=== PATIENT | female | born 1985 | race Caucasian/White ===

== ENCOUNTER 2024-09-07 18:40 | Emergency (ER) | payer OTHER, SELFPAY ==
[2024-09-07 18:51] VITALS: BP 117/76
[2024-09-07 19:15] LABS: % Basophils 0.5 % (0-2); % Eosinophils 2.1 % (0-6); % Immature Granulocytes 0.2 % (0-0.5); % Lymphocytes 37.7 % (20.5-51.1); % Monocytes 7.9 % (1.7-9.3); % Neutrophils 51.6 % (42.2-75.2); Absolute Eosinophils 0.1 10^3/uL (0-0.7); Absolute Lymphocytes 2.4 10^3/uL (1.2-3.4); Absolute Monocytes 0.5 10^3/uL (0.1-0.6); Absolute Neutrophils 3.3 10^3/uL (1.4-6.5); Hematocrit 35.6 % (37.0-47.0); Hemoglobin 11.7 g/dL (12.0-16.0); Mean Corp Hgb Conc. 32.9 g/dL (33.0-37.0); Mean Corpuscular Hgb 26.6 pg (27.0-31.0); Mean Corpuscular Volume 80.9 fL (81.0-99.0); Mean Platelet Volume 8.9 fL (7.4-10.4); Nucleated Red Blood Cells % 0 %; Platelet Count 194 10^3/uL (130-400); Red Cell Dist. Width 13.9 % (11.5-14.5); White Blood Cell Count 6.3 10^3/uL (4.8-10.8)
[2024-09-07 19:30] LABS: ALT (SGPT) 14 U/L (0-35); AST (SGOT) 18 U/L (14-36); Albumin 4.7 g/dl (3.5-5.0); Alkaline Phosphatase 29 U/L (38-126); Blood Urea Nitrogen 13 mg/dl (7-17); Calcium 9.7 mg/dl (8.4-10.2); Carbon Dioxide 26 mmol/L (22-30); Chloride 103 mmol/L (98-107); Glucose 95 mg/dl (70-99); Potassium 4.7 mmol/L (3.5-5.1); Sodium 138 mmol/L (135-145); Total Bilirubin 0.4 mg/dl (0.2-1.3); Total Protein 7.3 g/dl (6.3-8.2); eGFR > 60.00
[2024-09-07 22:00] VITALS: BMI 25.3
[2024-09-07 22:15] LABS: Urine Albumin Negative (Neg - Trace); Urine Bilirubin Negative (Negative); Urine Character Clear (Clear); Urine Color Yellow; Urine Glucose Negative (Negative); Urine Ketone Negative (Negative); Urine Leukocyte Negative (Negative); Urine Nitrite Negative (Negative); Urine Occult Blood 1+ (Negative); Urine Urobilinogen Negative (Neg - 1+)
[2024-09-07 22:26] LABS: Urine Squamous Cell >30 /LPF (Few)
[2024-09-07 22:27] LABS: Urine White Cell None Seen /HPF (0-5)
--- NOTE | 2024-09-07 22:51 | ED.GENMED ---
History of Present Illness
<KARINE Benito - Last Filed: 09/08/24 06:24>
General
Chief Complaint: Urinary Symptoms
Source: patient
Exam Limitations: none
Time Seen by Provider: 09/07/24 22:39
History of Present Illness
History of Present Illness:
38 y/o female pt with a PMH of kidney stones and Anemia presenting to ED c/o an unresolved UTI on macrobid. Pt started having symptoms of dysuria urgency and frequency on 09/02/24, went to PCP was prescribed macrobid and told she would be contacted
with results of UA. Pt states she didn't hear from them, she is coming in today because she is still having the same symptoms and now has associated right sided lower back discomfort and right sided suprapubic discomfort. Pt denies fevers,
hematuria, discharge, incontinence, N/V/D. Has a hx of complicated kidney stones that needed to be surgically treated, states she does not remember how it felt having them because it was more than 10 years ago. LMP: 08/14/24.
Past History
<KARINE Benito - Last Filed: 09/08/24 06:24>
Past History
ED Past Medical History: Other (Kidney stones, Anemia)
ED Past Surgical History: Urological
Review of Systems
<KARINE Benito - Last Filed: 09/08/24 06:24>
Review of Systems
Allergies reviewed?: Yes
Constitutional: Reports no symptoms
Respiratory: Reports no symptoms
Cardiac: Reports no symptoms
ABD/GI: Reports other (Suprapubic tenderness & discomfort)
: Reports dysuria, frequency, flank pain and urgency
Skin: Reports no symptoms
Neurological: Reports no symptoms
Hematologic/Lymphatic: Reports no symptoms
Phy Exam
<KARINE Benito - Last Filed: 09/08/24 06:24>
General Physical Exam
General Presentation: well appearing and no apparent distress
General age: appears stated age
General Skin: warm and dry
General Habitus: normal
General Mental: alert
General Hydration: appears well hydrated
Cardiovascular Exam
Cardiovascular Exam: regular rate/rhythm, no gallop and no murmur
Pulmonary Exam
Pulmonary Exam: lungs clear and no respiratory distress
Gastrointestinal Exam
Gastrointestinal Exam: normal bowel sounds, soft, non distended and cva tenderness
Palpation: left upper quadrant: No tenderness, left lower quadrant: No tenderness, right upper quadrant: No tenderness and right lower quadrant: Minimal tenderness
Skin Exam
Skin Exam: normal color and warm/dry
Course
<KARINE Benito - Last Filed: 09/08/24 06:24>
Orders/Labs/Results
Orders:
Orders
09/07/24 19:07
Complete Blood Count/With Diff Urgent
Comprehensive Metabolic Panel Urgent
HCG, Serum Qualitative Screen Urgent
Comment: ADD ON
09/07/24 22:05
Urinalysis Reflex To Culture Urgent
Date Specimen was Collected: 09/07/24
Time Specimen was Collected: 22:04
Urine Microscopic Reflex Cult Urgent
09/07/24 22:54
Test Result ONCE
09/07/24 23:00
Add On- LAB Urgent
Tests Added?: Preg. test
09/08/24 00:02
CT Abd/pel Without Iv Or Oral Urgent
Reason For Exam: prolonged UTI symptoms, hx of kidney stones
09/08/24 02:16
LevoFLOXacin [Levaquin] 750 mg PO NOW STA
Abnormal Lab Results
09/07/24 09/07/24
19:07 22:05
Hgb 11.7 L g/dL
(12.0-16.0)
Hct 35.6 L %
(37.0-47.0)
MCV 80.9 L fL
(81.0-99.0)
MCH 26.6 L pg
(27.0-31.0)
MCHC 32.9 L g/dL
(33.0-37.0)
Alkaline Phosphatase 29 L U/L
(38-126)
Ur Occult Blood Reflex 1+ A
(Negative)
Urine RBC 3-6 A /HPF
(0-2)
09/07/24 19:07
09/07/24 19:07
Vital Signs
Initial and Last Documented VS:
Initial Vital Signs
Temp Pulse Resp BP Pulse Ox
98.5 F 79 18 117/76 98
09/07/24 18:51 09/07/24 18:51 09/07/24 18:51 09/07/24 18:51 09/07/24 18:51
Last Documented Vital Signs
Temp Pulse Resp BP Pulse Ox
98.5 F 74 16 103/70 99
09/07/24 18:51 09/08/24 01:53 09/08/24 01:53 09/08/24 01:53 09/08/24 01:53
Pandalt;Piotr Felix, DO - Last Filed: 09/08/24 02:20>
Orders/Labs/Results
Orders:
Orders
09/07/24 19:07
Complete Blood Count/With Diff Urgent
Comprehensive Metabolic Panel Urgent
HCG, Serum Qualitative Screen Urgent
Comment: ADD ON
09/07/24 22:05
Urinalysis Reflex To Culture Urgent
Date Specimen was Collected: 09/07/24
Time Specimen was Collected: 22:04
Urine Microscopic Reflex Cult Urgent
09/07/24 22:54
Test Result ONCE
09/07/24 23:00
Add On- LAB Urgent
Tests Added?: Preg. test
09/08/24 00:02
CT Abd/pel Without Iv Or Oral Urgent
Reason For Exam: prolonged UTI symptoms, hx of kidney stones
09/08/24 02:16
LevoFLOXacin [Levaquin] 750 mg PO NOW STA
Abnormal Lab Results
09/07/24 09/07/24
19:07 22:05
Hgb 11.7 L g/dL
(12.0-16.0)
Hct 35.6 L %
(37.0-47.0)
MCV 80.9 L fL
(81.0-99.0)
MCH 26.6 L pg
(27.0-31.0)
MCHC 32.9 L g/dL
(33.0-37.0)
Alkaline Phosphatase 29 L U/L
(38-126)
Ur Occult Blood Reflex 1+ A
(Negative)
Urine RBC 3-6 A /HPF
(0-2)
09/07/24 19:07
09/07/24 19:07
Vital Signs
Initial and Last Documented VS:
Initial Vital Signs
Temp Pulse Resp BP Pulse Ox
98.5 F 79 18 117/76 98
09/07/24 18:51 09/07/24 18:51 09/07/24 18:51 09/07/24 18:51 09/07/24 18:51
Last Documented Vital Signs
Temp Pulse Resp BP Pulse Ox
98.5 F 74 16 103/70 99
09/07/24 18:51 09/08/24 01:53 09/08/24 01:53 09/08/24 01:53 09/08/24 01:53
Pandalt;KARINE Benito - Last Filed: 09/08/24 06:24>
*Critical Care Note
Total Time (30-74mins, 75-104mins- exclusive of procedures): Not Applicable
<Piotr Felix DO - Last Filed: 09/08/24 02:20>
Update Note
Update Note:
NAME: STACEY CAMPOS
DATE OF EXAM: 09/08/2024
Patient No: [id number]
Physician: KATERYNA
Date of : 1985
Past Medical History (entered by Technologist):
Reason For Exam (entered by Technologist):
Other Notes (entered by Technologist): pt c/o UTI symptoms since Sunday. pt being treated with macrobid w/o relief. pt states she has constant burning and pressure, not just with urination. pt has a hx of kidney stones, c/o R flank pain.
No prior
Additional Information (per [facility]):
CT ABDOMEN/PELVIS wo CONTRAST
IMPRESSION:
1. Mild wall thickening within loops of small bowel within the left abdomen, represent ileus and/or enteritis.
2. Bladder wall thickening, can be correlated with signs or symptoms of cystitis.
Incidentals:
- No bowel obstruction. Normal gallbladder and appendix
- No obstructive uropathy.
- No hepatic or pancreatic mass.
- No abdominal aortic aneurysm.
- No acute osseous abnormality.
- No acute abnormality within the visualized lungs.
- No acute abnormality within the visualized soft tissues.
Case finalized on Sep 08 2024 1:20AM ET
ED Attending Note
<KARINE Benito - Last Filed: 09/08/24 06:24>
-
Portions of this chart may have been created with voice recognition software.� Occasional wrong word or��sound alike� substitutions may have occurred due to the inherent limitations of voice recognition software.
<Piotr Felix DO - Last Filed: 09/08/24 02:20>
ED Attending Note
Patient seen and examined by attending physician: Yes
ED Attending Note:
Pleasant 38-year-old female presents to the emergency department with urinary tract infection symptoms since Sunday. She was seen by [facility] and started on Macrobid. She has had consistent pain. Patient does have a history
of kidney stones and complains of right flank pain. Patient had a CT scan that shows possible enteritis and cystitis. Patient denies fever, chills, nausea or vomiting. Reports no chest pain or shortness of breath. Patient was seen in conjunction
with the PA student. I have reviewed and agree with the history and treatment plan presented. On my independent physical exam, patient is awake, alert, and oriented x3 no acute distress. Heart is regular rate rhythm. Lungs clear to auscultation
bilaterally no wheezes rales or rhonchi present. Plan is to start Levaquin. Await cultures.
Discharge Plan
Departure
Patient Disposition: Home (Routine Discharge)
Date of Disposition: 09/08/24
Time of Disposition: 02:19
Patient with high blood pressure during this ER visit?: No
Condition: Good
Discharge Problem:
Cystitis, Enteritis
Instructions: Urinary Tract Infection, Adult (DC)
Prescriptions:
New
levofloxacin 750 mg tablet
750 mg PO DAILY 7 Days Qty: 7 0RF
No Action
One Tablet
1 tab PO DAILY
ibuprofen 600 MG tablet
600 mg PO Q6HPRN PRN (Reason: moderate pain/cramps) Qty: 0 0RF
Referrals:
Dorina Rosas DO [Family Provider] -
Activity Restrictions/Additional Instructions:
Thank You for choosing [facility].
It was a pleasure meeting you and taking part in your care. We hope for your continued healing and wellness.
Please read discharge instructions in their entirety. However, they are for general education and may not describe your exact diagnosis at discharge. Information on your ER visit and medical conditions were discussed with you along with appropriate
follow up information...
If indicated, please take your medications as instructed and indicated on discharge paperwork.
Please schedule a follow up appointment as directed. Call to schedule an appointment
Please return to the emergency department with ANY change in, persisting, or worsening of symptoms. If any of your symptoms do not improve, or persist, or become more severe within 6-12 hours, please return to the emergency department for further
care.
Please return to the emergency department if you develop a headache, neck pain/stiffness, fever greater than 100.4F, chest pain, shortness of breath, persistent nausea, vomiting, slurred speech, difficulty walking, numbness/tingling, weakness, signs
of infection or any other symptoms that are worrisome to you.
If you have any questions or concerns please do not hesitate to call the Hospital at or E-mail me directly at [email or web address]
Interventions
Interventions:
*Risk Screen - Suicide Last Done: 09/07/24 18:55
*General Assessment Last Done: 09/07/24 21:49
*Neglect/Abuse Screening Last Done: 09/07/24 18:55
*ED- Fall Risk Assessment Last Done: 09/07/24 21:49
*ED COVID-19 Vaccine History Last Done: 09/07/24 18:55
*Nursing Disposition Last Done: 09/08/24 02:39
ED-Female Genitourinary Assessment Last Done: 09/07/24 21:49
Discharge Date and Time
Discharge Date/Time: 09/08/24 02:40
Print Language: SAMOAN
[2024-09-07 23:34] LABS: HCG, Serum Qualitative Screen Negative
[2024-09-08 01:53] VITALS: BP 103/70
[2024-09-08] MEDS: LEVAQUIN 750 MG PO (02:25)
== END 2024-09-08 02:40 | disposition home or self-care (01) ==
LOC: EMR 18:40
PROVIDERS: Emergency Medicine; Student in an Organized Health Care Education/Training Program; EMERGENCY PHYSICIAN Student in an Organized Health Care Education/Training Program; FAMILY PHYSICIAN Family Medicine
DX: N30.90 Cystitis, unspecified without hematuria (principal); K52.9 Noninfective gastroenteritis and colitis, unspecified; Z87.440 Personal history of urinary (tract) infections; Z87.442 Personal history of urinary calculi
CPT/HCPCS: 99285; 74176; 80053; 81003; 81015; 84703; 85025

== ENCOUNTER → 2025-04-07 14:06 | Outpatient (REF) | payer OTHER, SELFPAY | LOC: HWRAD 14:06 | PROVIDERS: ATTENDING PHYSICIAN Specialist; FAMILY PHYSICIAN Family Medicine | DX: R31.0 Gross hematuria (principal); R10.20 Pelvic and perineal pain unspecified side; N20.0 Calculus of kidney | CPT/HCPCS: 74176 ==